=== PATIENT | male | born 1960 | race Caucasian/White ===

== ENCOUNTER 2017-04-27 20:03 | Emergency (ER) | payer MEDICAID ==
[~2017-04-27] VITALS: Ht 170.2 cm; Wt 71.4 kg
[2017-04-27 20:07] VITALS: BP 166/77
[2017-04-27] MEDS ORDERED: AMLO-27 PO (20:09)
--- NOTE | 2017-04-27 20:15 | NUR ---
PT AMBULATED TO CHAIR A
--- NOTE | 2017-04-27 20:18 | NUR ---
56 Y/O M TO ED WITH REQUESTING RX REFILL ON AMLODIPINE 5 MG. PT STATES HAS AN UPCOMING DR APPT NEXT MONTH. DENIES ANY CHEST PAIN OR OTHER TYPE OF PAIN. LOIS CRUZ MADE AWARE.
[2017-04-27 20:42] VITALS: BP 148/87
--- NOTE | 2017-04-27 20:42 | NUR ---
Patient discharged with v/s stable. Written and verbal after care instructions given and explained. Patient alert, oriented and verbalized understanding of instructions. Ambulatory with steady gait. All questions addressed prior to discharge. ID band removed. Patient advised to follow up with PMD. Rx of AMLODIPINE given. Patient educated on indication of medication including possible reaction and side effects. Opportunity to ask questions provided and answered.
== END 2017-04-27 20:42 | disposition home or self-care (01) ==
LOC: MED 20:03
DX: Z76.0 Encounter for issue of repeat prescription (principal); I10 Essential (primary) hypertension
CPT/HCPCS: 99283

== ENCOUNTER 2017-09-26 13:04 | Emergency (ER) | payer MEDICAID ==
[~2017-09-26] VITALS: Ht 170.2 cm; Wt 68.0 kg
[~2017-09-26 13:04] MED LIST: AMLO-27 PO
[2017-09-26 13:23] VITALS: BP 175/88
--- NOTE | 2017-09-26 13:32 | NUR ---
Patient ambulated to bed 7. RN evaluating patient at bedside.
--- NOTE | 2017-09-26 13:43 | NUR ---
PATIENT PRESENTS TO ED WITH LEFT SIDED NECK SWELLING LARGE X THIS AM DENIES SOB, FULL CLEAR SPEECH, DENIES THROAT PAIN, SWELLING PALPATED SOFT NO SUBCUTANEOUS emphysema NOTED DENIES N/V/D; SKIN IS PINK/WARM/DRY; AAOX4 WITH EVEN AND STEADY GAIT; LUNGS CLEAR BL; HR EVEN AND REGULAR; PT DENIES ANY FEVER, CP, SOB, OR COUGH AT THIS TIME; PATIENT STATES PAIN OF 0/10 AT THIS TIME; VSS; PATIENT POSITIONED FOR COMFORT; HOB ELEVATED; BEDRAILS UP X2; BED DOWN. ER MD MADE AWARE OF PT STATUS.
--- NOTE | 2017-09-26 15:00 | NUR ---
BLOOD COLLECTED BY LAB
[2017-09-26 15:28] LABS: ANION GAP 12.5 (8-16); CARBON DIOXIDE 25.5 mmol/L (21-32); CREATININE 1.3 mg/dL (0.7-1.3)
[2017-09-26 15:33] LABS: HEMATOCRIT 45.9 % (36-52); PROTHROMBIN TIME 10.9 secs (10.8-13.4); RED BLOOD CELL COUNT(AUTO) 5.16 MIL/uL (4.20-6.10); WHITE BLOOD COUNT (AUTO) 7.9 K/uL (4.8-10.8)
[2017-09-26 15:34] LABS: BASOPHILS % (AUTO) 2.2 % (0.0-2.0); EOSINOPHILS % (AUTO) 2.1 % (0.0-4.0); LYMPHOCYTES # (AUTO) 1.1 K/uL (2.0-11.5); LYMPHOCYTES % (AUTO) 13.8 % (20.5-51.1); MEAN CORPUSCULAR HEMOGLOBIN 29 pg (27-31); MEAN CORPUSCULAR HGB CONC 33 g/dL (33-37); MONOCYTES # (AUTO) 0.6 K/uL (0.8-1.0); NEUTROPHILS # (AUTO) 5.8 K/uL (1.8-7.7); NEUTROPHILS % (AUTO) 73.9 % (42.2-75.2); PLATELET COUNT (AUTO) 220 K/uL (140-450)
[2017-09-26 15:35] LABS: ALBUMIN 3.3 g/dL (3.4-5.0); BASOPHILS # (AUTO) 0.2 K/uL (0.00-0.22); EOSINOPHILS # (AUTO) 0.2 K/uL (0-0.4); TOTAL BILIRUBIN 0.2 mg/dL (0.0-1.0)
[2017-09-26 15:46] LABS: D-DIMER < 100 ng/ml (0-400)
--- NOTE | 2017-09-26 16:05 | NUR ---
PATIENT TAKEN FOR CT CHEST ANGIO VIA W/C
--- NOTE | 2017-09-26 17:07 | NUR ---
Dr. Sotelo re-evaluating patient at bedside.
--- NOTE | 2017-09-26 18:07 | NUR ---
DISPO HAS CHANGED---- PER ADMITTING MD, PT SHOULD BE TRANSFERED FOR HIGHER LEVEL OF CARE. PT NOTIFIED
--- NOTE | 2017-09-26 18:54 | NUR ---
PT SIGNED TRANSFER CONSENT
[2017-09-26] MEDS ORDERED: VANCOMYCIN 1,000 MG in DEXTROSE 5% 250 ML IV ONE (19:05)
[2017-09-26] MEDS ORDERED: PIPERACILLIN/TAZOBACTAM 3.375 GM in DEXT 5% MINI-BAG PLUS 50 ML IV ONE (19:05)
--- NOTE | 2017-09-26 19:10 | NUR ---
Patient appears to be resting comfortably in bed. Respirations even and unlabored.
[2017-09-26] MEDS ORDERED: VANCOMYCIN 1,000 MG VIAL ONE (19:16)
[2017-09-26] MEDS ORDERED: PIPERACILLIN/TAZOBACTAM 3.375 GM VIAL IV ONE (19:16)
--- NOTE | 2017-09-26 20:58 | NUR ---
CALLED [facility] FOR REPORT PER MAXIMO MARTINEZ RN, TO CALL BACK IN 10 MINS TO VERIFY IF BED IS AVAILABLE
--- NOTE | 2017-09-26 21:20 | NUR ---
Patient to be transferred to [facility]. Is being transferred due to HIGHER LEVEL OF CARE. Receiving facility has accepting physician and available space. ER physician has signed transfer form. Patient or responsible republican has agreed to transfer and signed form. Patient belongings inventoried and will be sent with patient. Copy of nursing notes, lab reports, EKG, Physicians Orders and X-rays to be sent with patient. Report called to DESTINY NEAL at receiving facility. [facility] ambulance service has been called for transfer. ETA is 30MINS.
--- NOTE | 2017-09-26 22:00 | NUR ---
per [facility] ETA IS AT 2300
--- NOTE | 2017-09-26 23:22 | NUR ---
Patient Tranfers to outside Facility Physician: DR SCHMIDT Location:[facility]
[2017-09-26 23:23] VITALS: BP 154/83
--- NOTE | 2017-09-28 11:48 | NUR ---
RECEIVED A REQUEST FROM [facility] FOR H&P, ETC CLINICALS. I CALLED RAQUEL CLAY AT [phone] AND INFORMED HER THAT THE PATIENT WAS NOT ADMITTED. WENT TO [facility], HIGHER LEVEL OF CARE, FROM THE ER ON 09/26/17
== END 2017-09-26 23:20 | disposition short-term general hospital (02) ==
LOC: MED 13:04 → MTU 17:39 → UNDOADMIN 17:39 → MED 23:20
DX: J98.51 Mediastinitis (principal); I10 Essential (primary) hypertension; Z79.899 Other long term (current) drug therapy
CPT/HCPCS: 36415; 71045; 71260; 80053; 82550; 84484; 85025; 85379; 85610; 85730; 86886; 86900; 86901; 87040; 93005; 96365; 96367; 99285; J2543; J3370; J7060; Q0092

== ENCOUNTER 2021-11-19 09:28 | Emergency (ER) | payer MEDICAID, OTHER ==
[~2021-11-19] VITALS: Ht 170.2 cm; Wt 64.4 kg
[~2021-11-19 09:28] MED LIST changes: -AMLO-27 PO; +AMLO10TA89 PO
[2021-11-19 09:42] VITALS: BP 133/72
--- NOTE | 2021-11-19 09:48 | NUR ---
PT AMB TO BED 12.
--- NOTE | 2021-11-19 09:50 | NUR ---
61/M WALKED FROM HOME C/O LLQ ABD PAIN ACCOMPANIED BY [facility]S AND NAUSEA ONSET YESTERDAY. DENIES TRAUMA OR VOMITING. DENIES BLOOD IN STOOL. AAOX4, AMBULATORY, ON GOWN AND MONITOR. UNABLE TO PROVIDE URINE AT THIS TIME. PMH: THYROID SURGERY 5 YEARS AGO, HTN NKA
--- NOTE | 2021-11-19 10:58 | NUR ---
PT BACK FROM CT
[2021-11-19 11:09] LABS: BASOPHILS % (AUTO) 0.1 % (0.0-2.0); EOSINOPHILS % (AUTO) 0.4 % (0.0-4.0); HEMOGLOBIN 13.3 g/dL (12.0-18.0); LYMPHOCYTES # (AUTO) 0.6 K/uL (2.0-11.5); LYMPHOCYTES % (AUTO) 8.6 % (20.5-51.1); MEAN CORPUSCULAR HEMOGLOBIN 30 pg (27-31); MEAN CORPUSCULAR HGB CONC 35 g/dL (33-37); MEAN CORPUSCULAR VOLUME 86.5 fL (80-94); MONOCYTES # (AUTO) 0.7 K/uL (0.8-1.0); MONOCYTES % (AUTO) 9.9 % (1.7-9.3); NEUTROPHILS # (AUTO) 5.5 K/uL (1.8-7.7); PLATELET COUNT (AUTO) 188 K/uL (140-450); RED CELL DISTRIBUTION WIDTH 13.3 % (11.6-13.7); WHITE BLOOD COUNT (AUTO) 6.8 K/uL (4.8-10.8)
[2021-11-19 11:10] LABS: ALBUMIN 2.9 g/dL (3.4-5.0); ANION GAP 11.9 (8-16); CARBON DIOXIDE 26.1 mmol/L (21-32); CREATININE 1.2 mg/dL (0.6-1.3); TOTAL BILIRUBIN 0.4 mg/dL (0.0-1.0)
[2021-11-19 11:26] LABS: APPEARANCE,URINE CLEAR (CLEAR); BILIRUBIN,URINE NEGATIVE (NEGATIVE); BLOOD, URINE 1+ (NEGATIVE); COLOR,URINE YELLOW (YELLOW); LEUKOCYTE ESTERASE ,URINE NEGATIVE (NEGATIVE); NITRITE, URINE NEGATIVE (NEGATIVE); UGLUCOSE NEGATIVE (NEGATIVE)
[2021-11-19 11:49] LABS: WBC,URINE NONE SEEN /HPF (0-5)
[2021-11-19] MEDS ORDERED: NAPR-1704 PO (12:05)
[2021-11-19 12:14] VITALS: BP 135/72
--- NOTE | 2021-11-19 12:14 | NUR ---
Patient discharged with v/s stable. Written and verbal after care instructions given and explained. Patient verbalized understanding. Ambulatory with steady gait. All questions addressed prior to discharge. Advised to follow up with PMD.
== END 2021-11-19 12:14 | disposition home or self-care (01) ==
LOC: MED 09:28
DX: N20.0 Calculus of kidney (principal); Z20.822 Contact with and (suspected) exposure to COVID-19; I10 Essential (primary) hypertension; Z98.890 Other specified postprocedural states; Z79.899 Other long term (current) drug therapy; Z79.1 Long term (current) use of non-steroidal anti-inflammatories (NSAID)
CPT/HCPCS: 36415; 80053; 81001; 83605; 85025; 87040; 99284